=== PATIENT | female | born 1975 | race Caucasian/White ===

== ENCOUNTER 2018-08-13 01:56 | Outpatient (CLI) | payer OTHER, SELFPAY ==
--- NOTE | 2018-08-13 07:45 | DI.MAMMO_ITS ---
SYMPTOM/DIAGNOSIS; SCREENING, [facility] Z00.00 MAMMOGRAM: Comparison with prior examinations. Mammograms were interpreted according to the usual protocol including computer analysis with CAD system, tomosynthesis and C view imaging. No suspicious masses or microcalcifications are seen. There is no definite evidence of malignancy. IMPRESSION: Negative mammogram. Routine screening is recommended. Breast density B, Category 1. SA ASSESSMENT OF FINDINGS: Negative. Category 1. Patient will receive a letter notifying them of these results. BI-RADS category B. There are scattered areas of fibroglandular density.
== END 2018-08-13 02:16 ==
PROVIDERS: PCP Physician Assistant Medical; Visit Provider Physician Assistant Medical
DX: Z00.00 Encounter for general adult medical examination without abnormal findings (principal); Z12.31 Encounter for screening mammogram for malignant neoplasm of breast
CPT/HCPCS: 77063; 77067

== ENCOUNTER 2018-08-17 11:52 | Outpatient (REF) | payer OTHER, SELFPAY ==
--- NOTE | 2018-08-17 10:00 | PAPFT_PTH ---
PATIENT: Shu Steiner LOC: [facility]#:[id number] AGE/SX: 42/F ROOM: RE08/17/[address]: Geronimo Cerna : 1975 BED: DIS: 08/17/2018 SPEC #: [id number] RECD: 08/18/18 13:06 STATUS: TAYLOR REVíctor #: [id number] SKINNY: 08/17/18 10:[address]: Geronimo Cerna DEPT: [facility] Cytology RECD BY: Jeannie Garcia Tissues: 1 - CX/ENDOCX FOR PAP SMEARS Procedures: PAP THIN PREP/UVM Screening HPV DNA PROBE Comments: [id number]
== END 2018-08-17 12:12 ==
LOC: NCHCN 11:52
PROVIDERS: PCP Physician Assistant Medical; Visit Provider Physician Assistant Medical
DX: Z12.4 Encounter for screening for malignant neoplasm of cervix (principal); Z11.51 Encounter for screening for human papillomavirus (HPV)
CPT/HCPCS: 88142; 87624

== ENCOUNTER 2020-05-30 16:21 | Outpatient (REF) | payer OTHER, SELFPAY ==
[2020-05-31 14:52] LABS: COVID-19 RT-PCR UVMMC Result Positive (Negative)
== END 2020-05-30 16:22 | disposition home or self-care (01) ==
LOC: NCHCN 16:21
PROVIDERS: PCP Physician Assistant Medical; Referring Provider Physician Assistant Medical; Visit Provider Physician Assistant Medical
DX: Z20.828 Contact with and (suspected) exposure to other viral communicable diseases (principal); J06.9 Acute upper respiratory infection, unspecified
CPT/HCPCS: U0003

== ENCOUNTER 2021-04-01 14:59 | Outpatient (REF) | payer OTHER, SELFPAY ==
[2021-04-01 20:47] LABS: Abs Immature Grans 0.03 10^3/uL (0.0-0.06); Absolute Basophil Count 0.05 10^3/uL (0.0-0.2); Absolute Eosinophil Count 0.14 10^3/uL (0.0-0.7); Absolute Lymphocyte Count 2.68 10^3/uL (1.2-3.4); Absolute Monocyte Count 0.63 10^3/uL (0.1-0.8); Absolute Neutrophil Count 4.04 10^3/uL (1.2-6.7); Basophils % 0.7; Eosinophils % 1.8; HCT 28.1 % (36.0-46.0); Immature Grans % 0.4; Lymphocytes % 35.4; MCH 19.8 pg (27.0-33.0); MCHC 28.5 % (32.0-36.0); MCV 69.6 fL (80-95); Monocytes % 8.3; Neutrophils % 53.4; Nucleated RBC 0 %; Platelet Count 373 10^3/uL (130-400); RBC 4.04 10^6/uL (3.93-5.22); RDW 19.4 % (11.7-14.6); RDW-SD 47.5 fL; WBC 7.57 10^3/uL (4.4-10.8)
[2021-04-01 21:03] LABS: Anisocytosis 2+; Diff Comment Agrees w/ Instrument
[2021-04-01 21:08] LABS: TSH (W/Ref FT4) 1.38 uIU/mL (0.36-3.74)
[2021-04-01 21:21] LABS: Hypochromasia 2+; Microcytosis 2+; Ovalocytes 2+; Tear Drop Cells 2+
[2021-04-01 21:22] LABS: Poikilocytes 2+
== END 2021-04-01 15:00 | disposition home or self-care (01) ==
LOC: NCHCN 14:59
PROVIDERS: PCP Physician Assistant Medical; Visit Provider Physician Assistant Medical
DX: N92.5 Other specified irregular menstruation (principal)
CPT/HCPCS: 84443; 85025

== ENCOUNTER 2021-05-13 03:27 | Outpatient (CLI) | payer OTHER, SELFPAY ==
--- NOTE | 2021-05-13 11:00 | DI.MAMMO_ITS ---
Exam(s) MAMMO SCREENING EXAM: MAMMO SCREENING CLINICAL HISTORY: SCREENING, Z12.31 TECHNIQUE: Mammograms were interpreted according to the usual protocol including computer analysis w [employer] CAD system, tomosynthesis and C-view imaging. COMPARISON: 2013 and 2018 FINDINGS: The breasts are composed of scattered fibroglandular densities, Breast Density category B. No suspicious masses or suspicious microcalcifications are seen. No skin thickening or abnormal axillary lymph nodes are seen. There has been no significant change from prior exams. IMPRESSION: BI-RADS Category 1, Negative mammogram Yearly screening mammography is recommended. Breast Density - Category B, scattered fibroglandular densities. A negative radiographic report should not delay biopsy if a dominant or clinically suspicious mass is present. Up to ten percent of cancers are not identified on mammography. A negative report may reinforce clinical impression. Adenosis and dense breasts may obscure an underlying neoplasm. False positive reports average 6 to 10%. Patient will receive a letter notifying them of these results.
== END 2021-05-13 03:47 ==
PROVIDERS: PCP Physician Assistant Medical; Visit Provider Obstetrics & Gynecology
DX: Z12.31 Encounter for screening mammogram for malignant neoplasm of breast (principal)
CPT/HCPCS: 77063; 77067

== ENCOUNTER 2021-05-24 00:55 | Outpatient (RCR) | payer OTHER, SELFPAY ==
[2021-05-10] MEDS: IRON SUCROSE COMPLEX 300 MG in Normal Saline 250 ML 176.667 MG IVPB (07:30)
[2021-05-10] MEDS: Normal Saline Flush 10 ML SYR IVP (07:30)
[2021-05-17] MEDS: IRON SUCROSE COMPLEX 300 MG in Normal Saline 250 ML 176.667 MG IVPB (07:24)
[2021-05-17] MEDS: Normal Saline Flush 10 ML SYR IVP (07:24)
[2021-05-24] MEDS: Normal Saline Flush 10 ML SYR IVP (07:27)
[2021-05-24] MEDS: IRON SUCROSE COMPLEX 300 MG in Normal Saline 250 ML 176.667 MG IVPB (07:27)
== END 2021-06-06 23:59 | disposition home or self-care (01) ==
LOC: INF 00:55
PROVIDERS: PCP Physician Assistant Medical; Visit Provider Family Medicine
DX: D50.9 Iron deficiency anemia, unspecified (principal)
CPT/HCPCS: 96365; 96366; J1756

== ENCOUNTER 2022-10-10 09:01 | Outpatient (REF) | payer OTHER, SELFPAY ==
[2022-10-10 16:29] LABS: HCT 38.3 % (36.0-46.0); MCH 24.6 pg (27.0-33.0); MCHC 31.3 % (32.0-36.0); MCV 79 fL (80-95); MPV 9.9 fL (8.0-11.0); Platelet Count 350 10^3/uL (130-400); RBC 4.87 10^6/uL (3.93-5.22); RDW 16.5 % (11.7-14.6); RDW-SD 46.9 fL; WBC 7.97 10^3/uL (4.4-10.8)
[2022-10-10 17:39] LABS: ALT 22 U/L (14-59); AST 22 U/L (15-37); Albumin 3.6 g/dL (3.4-5.0); Alkaline Phosphatase 66 U/L (46-116); Anion Gap 8.4 mmol/L (3-11); BUN 11 mg/dL (7-18); Bilirubin, Total 0.3 mg/dL (0.2-1.0); CO2 25.6 mmol/L (21.0-32.0); CREATININE 0.9 mg/dL (0.55-1.02); Calcium 9.1 mg/dL (8.5-10.1); Calculated LDL 116 mg/dL (<100); Chloride 106 mmol/L (98-107); Cholesterol 195 mg/dL (<200); Estimated GFR 78.37 (mL/min/1.73m2); Glucose 83 mg/dL (74-106); HDL Cholesterol 55 mg/dL (40-60); Potassium 4.7 mmol/L (3.5-5.1); Sodium 140 mmol/L (136-145); Total Protein 7.4 g/dL (6.4-8.2); Triglyceride 121 mg/dL (<150)
== END 2022-10-10 09:02 | disposition home or self-care (01) ==
LOC: NCHCN 09:01
PROVIDERS: PCP Physician Assistant Medical; Visit Provider Physician Assistant Medical
DX: Z00.00 Encounter for general adult medical examination without abnormal findings (principal); Z13.228 Encounter for screening for other metabolic disorders; Z13.220 Encounter for screening for lipoid disorders; Z13.0 Encounter for screening for diseases of the blood and blood-forming organs and certain disorders involving the immune mechanism
CPT/HCPCS: 80053; 80061; 85027

== ENCOUNTER 2023-05-18 06:53 | Day surgery (SDC) | payer OTHER, SELFPAY ==
--- NOTE | 2023-05-17 06:40 | W.PM.DSUDISC ---
Date of service: 05/18/23 Time of Service: 08:38 Discharge Plan Disposition Patient Disposition: Home Condition: Good Discharge Details Reason For Visit: screening colonoscopy Attending Provider: Mike Hurtado Primary Care Provider: Geronimo Cerna Home Meds and New Rx's Prescriptions: Continued acetaminophen [Tylenol] 325 mg tablet 325 mg PO Q6H PRN ibuprofen 200 mg tablet 200 mg PO Q6H PRN blood builder plan based iron tablet 1 tab PO DIRECTED omeprazole 10 mg capsule,delayed release(DR/EC) 10 mg PO ONCE Discontinued bisacodyl [Dulcolax (bisacodyl)] 5 mg tablet,delayed release (DR/EC) 5 mg PO ONCE Qty: 4 0RF Rx Instructions: Colonoscopy Bowel Prep- Per Instructions polyethylene glycol 3350 17 gram/dose powder 238 g PO ONCE Qty: 238 0RF Rx Instructions: Colonoscopy Bowel Prep- Per Instructions Discharge Instructions Instructions: Colorectal Polyps (GEN) Additional Instructions: Shu, we were able to complete your colonoscopy today without any difficulty. I did find a total of 3 polyps. These were medium in size. I removed all of them without any issues. They will all be sent off for testing, and when I have the results of the polyp report, the office will be in touch with recommendations for the timing of your next colonoscopy. If you have any questions in the meantime, please do not hesitate to call at any point. 1. If tolerated, consume a soft, low fiber diet for 1-2 days. 2[address] Do not drive, drink alcohol, operate machinery, make critical decisions, or do activities that require coordination or balance for 24 hours. 3. Because air was put into your colon during the procedure, expelling air from your rectum (passing gas or farting) is normal. 4. You may not have a bowel movement for 1-3 days because of the colonoscopy prep. This is normal. 5. Go directly to the emergency room if you notice any of the following: Develop chills (warm to touch), or if you have a thermometer and your temperature is above 101 Difficulty breathing or difficultly swallowing Persistent vomiting Severe abdominal pain, other than gas cramps Severe chest pain Black, tarry stools Any bleeding ? exceeding one tablespoon 6. Call your physician if the site where your intravenous was started becomes red, swollen, painful, and warm to touch. 7. Your physician has reviewed your pre-procedure medications. Please continue to take those medications as previously ordered. You will be given specific information/education regarding any changes to your medications before leaving. Activity:: Activity as Tolerated Diet:: As Tolerated Discharge Orders Discharge Orders: Discharge Order (Routine); Ordered 05/17/23 Ordered By: Mike Hurtado DS: Diagnosis Discharge Diagnosis (1) Encounter for screening colonoscopy: Status: Acute Asessment and Plan: Follow-up on polypectomy results
--- NOTE | 2023-05-17 06:42 | W.COLOREPORT ---
Date of service: 05/18/23 Time of Service: 08:39 Colonoscopy Report Date of procedure: 05/18/23 Pre-op diagnosis general: screening colonoscopy Post-op diagnosis procedure note: other (Colon polyps) Procedure: colonoscopy with polypectomy Surgeon: Mike Hurtado Anesthesia Type: General:No Airway Estimated blood loss (mL): 10 Pathology: other (0.5 cm pedunculated polyp at 25 cm, 0.5 cm flat polyp also at 25 cm, 0.25 cm flat polyp at 95 cm) Complications: None Disposition: same day Indications: Shu is a 47-year-old woman who needs her first screening colonoscopy. Prep: Miralax/Dulcolax Procedure Start Time: 08:04 Procedure End Time: 08:25 Retraction Time: 10 Findings: 0.5 cm pedunculated polyp at 25 cm, 0.5 cm flat polyp also at 25 cm, 0.25 cm flat polyp at 95 cm Procedure Description: After the induction of monitored anesthetic care, and with the patient in left lateral decubitus position, I began by performing an external anorectal exam.? Perineum and skin were normal, as was the anal verge.? There was no evidence of external hemorrhoids.? Next, I performed a digital rectal exam.? I did not appreciate any abnormal findings.? Next, I advanced a colonoscope into the rectal vault.? I performed retroflexion.? This was normal.? Using insufflation, I then advanced the colonoscope beyond the rectal folds and into the sigmoid colon before advancing towards the cecum.? The scope was noted to be in the cecum by identification of the ileocecal valve and appendiceal orifice.? I then began withdrawing the colonoscope using repeated irrigation as necessary for full evaluation of the colonic mucosa. Around 95 cm from the anus was a 0.25 cm flat polyp. This was removed in piecemeal with cold forceps without any difficulty. ?At 25 cm from the anus were 2 polyps. These were just on opposite sides of a fold. One was about 0.5 cm and slightly pedunculated. The other was about 0.5 cm and more flat. These were both removed with cold snare polypectomy without any issue. Once the scope was withdrawn to the level of the rectum, great care was taken to examine portions of the rectal folds.? Finally, the scope was withdrawn and the patient was brought to the same-day surgery recovery unit as the anesthetic wore off. ?The findings and instructions were shared with the patient prior to discharge. [place] Bowel Prep [place] Bowel Prep Right Colon: 3 Left Colon: 3 Transverse Colon: 3 Total Score: 9
[2023-05-18 07:08] VITALS: BP 124/77; PULSE 81; RESP 20; TEMP 36.5; O2SAT 97
[2023-05-18] MEDS: Lactated Ringers 1,000 ML 80 ML IV (07:16)
--- NOTE | 2023-05-18 07:47 | W.ANESPRE ---
General Info Date of Service Date Performed: 05/18/23 Height: 5 ft 7 in Weight: 105.8 kg Body Mass Index (BMI): 36.5 Surgical Procedure: Operation Date: 05/18/23 08:20 Proposed Procedure Side Surgeon yajaira Hurtado MD Meds Allergies and Home Medications Allergies Allergy/AdvReac Type Severity Reaction Status Date / Time varenicline [From Chantix] Allergy Intermediate Skin Rash Verified 05/18/23 07:00 Home Medication Medication Instructions Recorded acetaminophen 325 mg tablet 325 mg PO Q6H PRN 04/02/23 (Tylenol) blood builder plan based iron 1 tab PO DIRECTED 04/02/23 tablet ibuprofen 200 mg tablet 200 mg PO Q6H PRN 04/02/23 omeprazole 10 mg capsule,delayed 10 mg PO ONCE 05/18/23 release Current Visit Medications: Current Medications Generic Name Dose Route Start Last Admin Trade Name Freq PRN Reason Stop Dose Admin Hyoscyamine Sulfate 0.125 mg 05/17/23 06:43 Hyoscyamine 0.125 Mg Sl/Oral/Chew SL 06/16/23 06:42 DIRECTED PRN Ringer's Solution 1,000 mls @ 80 mls/hr 05/18/23 06:00 05/18/23 07:16 IV 05/18/23 23:59 80 mls/hr INFUSION IRENE Administration IV Miscellaneous Supplies 1 each 05/18/23 06:00 Iv Access IV 05/18/23 23:59 DIRECTED IRENE Ondansetron HCl 4 mg 05/17/23 06:43 Ondansetron 4 Mg/2 Ml Vial IVP 06/16/23 06:42 Q4H PRN PRN Nausea / Vomiting Sodium Chloride 0 ml 05/18/23 06:00 Normal Saline Flush 10 Ml Syr IV 05/18/23 23:59 PRN PRN Sodium Chloride 0 ml 05/18/23 06:00 Normal Saline 10 Ml Vial IJ 05/18/23 23:59 DIRECTED PRN Sterile Water 0 ml 05/18/23 06:00 Water,Injection,Sterile 10 Ml Vial IJ 05/18/23 23:59 DIRECTED PRN PFSH Active Problems Active Problems: Problem Status Onset Code Encounter for screening colonoscopy Z12.11 Smoker F17.200 Hand pain, left M79.642 Skin lesion of face L98.9 Knee pain, left M25.562 Medical History Medical History Anemia Menorrhagia Medical History Comments:: Pt. states she is ALWAYS sick Surgical History Surgical History S/P panniculectomy S/P cholecystectomy Hx of bariatric surgery laparoscopic sleeve gastrectomy 11/30/17 Tobacco Smoking/Tobacco Use Status: Current every day Tobacco Type: cigarettes Smoking cigarettes per day: 5 Alcohol Alcohol Intake: current Alcohol intake frequency: holidays/special occasions only Substance Use Substance use type: does not use Vital Signs and Lab Results Vital Signs Most Recent Vital Signs in EMR: Most Recent Vital Signs Temp Pulse Resp BP Pulse Ox 36.5 C 81 20 124/77 97 05/18/23 07:08 05/18/23 07:08 05/18/23 07:08 05/18/23 07:08 05/18/23 07:08 Lab Results Blood Type / Crossmatch: No Data to Display Complete Blood Count: No Data to Display Complete Metabolic Panel: No Data to Display Liver Function Panel: No Data to Display Coagulation Panel: No Data to Display Cardiac Panel: No Data to Display Arterial Blood Gas: No Data to Display Venous Blood Gas: No Data to Display Pancreas Panel: No Data to Display Thyroid Panel: No Data to Display Infectious Disease: No Data to Display Blood Cultures: No Data to Display Toxicology Panel: No Data to Display Panel: No Data to Display Anesthesia Assessment and Plan Anesthesia History Personal History: PONV Family History: No Family History of Anesthesia Complications Exercise Tolerance Exercise Tolerance: Metabolic Equivalents>4 Pertinent Negatives Pertinent Negatives: No Symptoms of GERD Cardiac & Pulmonary Exam Cardiac Exam: Normal S1/S2 Heart Sounds Pulmonary Exam: Clear Bilateral Breath Sounds Implantable Cardiac Device Does patient have a Pacemaker or an ICD?: No Airway Exam Known Difficult Airway: No Mallampati Class: 1 Mouth Opening: Normal (> 3cm) Thyromental Distance: Greater than 3 cm Neck Range of Motion: Full ROM Neck Circumference: Normal Teeth Condition: Normal Dentition ASA Classification ASA Score: ASA 2 Emergency Case?: No NPO Status NPO Status: NPO Clears >2 hours, Solids >8 hours Status Status: Negative HCG Anesthesia Plan Resuscitation Status: Full Code Anesthesia Technique: General Anesthesia Airway Planned: Natural Airway Monitors Used: Standard Monitors
[2023-05-18 07:50] VITALS: BMI 36.5
--- NOTE | 2023-05-18 08:06 | BOWEL_PTH ---
PATIENT: Shu Steiner LOC: [facility] U#:[id number] AGE/SX: 47/F ROOM: RE05/18/[address]: Mike Hurtado MD : 1975 BED: DIS: 05/18/2023 SPEC #: [id number] RECD: 05/18/23 12:30 STATUS: TAYLOR REQ #: [id number] SKINNY: 05/18/23 08:[address]: Mike Hurtado DEPT: Surgical Specimen RECD BY: Jeannie Garcia ENTERED: 05/18/23 12:32 SP TYPE: Bowel OTHR DR: Geronimo Cerna Tissues: 1 - BIOPSY BOWEL 2 - BIOPSY BOWEL Procedures: GROSS AND MICRO LEVEL 4 Comments: [id number]
[2023-05-18 08:34] VITALS: BP 115/86; PULSE 80; RESP 18; TEMP 36.3; O2SAT 98
[2023-05-18 09:00] VITALS: BP 127/99; PULSE 77; RESP 18; TEMP 36.5; O2SAT 99
--- NOTE | 2023-05-18 09:00 | W.ANESPOSTOP ---
Postoperative Evaluation Date, Time and Location Date Performed: 05/18/23 Time Performed: 08:45 Patient Location: Day Surgery Unit Vital Signs Most Recent Imported Vital Signs: Most Recent Vital Signs Temp Pulse Resp BP Pulse Ox 36.3 C L 80 18 115/86 98 05/18/23 08:34 05/18/23 08:34 05/18/23 08:34 05/18/23 08:34 05/18/23 08:34 Pain Score Most Recent Pain Score: Most Recent Pain Score Pain Level 0 05/18/23 08:34 Assessment Mental Status: Awake (Alert & Oriented to Patient Baseline) Airway and Respiratory Function: Patent airway with normal (patient baseline) respiratory exam Cardiovascular Function: Hemodynamically Stable Hydration Status: Adequately Hydrated Nausea & Vomiting: No Nausea or Vomiting Pain: Pt. Denies Any Pain Peripheral Nerve Block: Patient did not receive a nerve block
== END 2023-05-18 09:10 | disposition home or self-care (01) ==
LOC: SUR 06:54
PROVIDERS: PCP Physician Assistant Medical; Visit Provider Surgery
PROC: 0DJD8ZZ Inspection of Lower Intestinal Tract, Via Natural or Artificial Opening Endoscopic (ICD-10-PCS; CPT 45378; principal; 2023-05-18 08:15)
DX: Z12.11 Encounter for screening for malignant neoplasm of colon (principal); D37.4 Neoplasm of uncertain behavior of colon; F17.200 Nicotine dependence, unspecified, uncomplicated; D12.3 Benign neoplasm of transverse colon
CPT/HCPCS: 45380; 81025; 88305; J2405; J2704